=== PATIENT | female | born 1935 | race Caucasian/White ===

== ENCOUNTER 2018-07-08 16:36 | Emergency (ER) | payer MEDICARE, BC ==
--- NOTE | 2018-07-08 17:30 | EDM.PDOC ---
ED HPI GENERAL MEDICAL PROBLEM - General Chief Complaint: Head Injury Stated Complaint: POSSIBLE CONCUSSION Time Seen by Provider: 07/08/18 16:46 Source of Information: Reports: Patient History Limitations: Reports: No Limitations - History of Present Illness INITIAL COMMENTS - FREE TEXT/NARRATIVE: HISTORY AND PHYSICAL: History of present illness: Patient is an 83-year-old female here with complaint of head injury. Prior to the ED she was on a stepladder going down from the first step to floor when she fell backwards and hit her head on the wall. She states that she has gout in her foot and she stepped right where it hurts and believes this contributed to her fall. She did not lose consciousness but states she left a hole in the wall where she hit her head. She denies chest pain, dizziness, SOB prior to her fall. She states she is feeling a little dizzy now but denies headache, visual disturbances, vomiting. Review of systems: As per history of present illness and below otherwise all systems reviewed and negative. Past medical history: As per history of present illness and as reviewed below otherwise noncontributory. Surgical history: As per history of present illness and as reviewed below otherwise noncontributory. Social history: No reported history of drug or alcohol abuse. Family history: As per history of present illness and as reviewed below otherwise noncontributory. Physical exam: General: Patient sitting comfortably in no acute distress and nontoxic appearing HEENT: Atraumatic, normocephalic, pupils reactive, negative for conjunctival pallor or scleral icterus, mucous membranes moist, throat clear, neck supple, nontender, trachea midline. No meningeal signs. Lungs: Clear to auscultation, breath sounds equal bilaterally, chest nontender. Heart: S1S2, regular, negative for clicks, rubs, or overt murmur. Abdomen: Soft, nondistended, nontender. Negative for masses or hepatosplenomegaly. Negative for costovertebral tenderness. Pelvis: Stable nontender. Genitourinary: Deferred. Rectal: Deferred. Spine: No vertebral or paraspinal tenderness to palpation Extremities: Atraumatic, negative for cords or calf pain. Neurovascular unremarkable. Neuro: Awake, alert, oriented. Cranial nerves II through XII unremarkable. Cerebellum unremarkable. Motor and sensory unremarkable throughout. Exam nonfocal. Notes: Diagnostics: Head CT, EKG, CBC, CMP, UA Therapeutics: None Prescriptions: None Impression: Head injury, mechanical fall, medical screening exam Plan: 1. Follow up with your primary care provider 2. Return to ED as needed as discussed Definitive disposition and diagnosis as appropriate pending reevaluation and review of above. - Related Data Allergies Allergy/AdvReac Type Severity Reaction Status Date / Time No Known Allergies Allergy Verified 07/08/18 17:09 Home Meds: Home Meds Aspirin 325 mg PO DAILY 07/08/18 [History] Metoprolol Succinate [Toprol XL] 07/08/18 [History] Potassium Gluconate [Potassium] 07/08/18 [History] Triamterene 07/08/18 [History] ED ROS GENERAL - Review of Systems Review Of Systems: ROS reveals no pertinent complaints other than HPI. ED EXAM, HEAD INJURY - Physical Exam Exam: See Below (see dictation) Course - Vital Signs Last Recorded V/S: Last Vital Signs Temp 98.2 F 07/08/18 17:00 Pulse 65 07/08/18 17:00 Resp 18 07/08/18 17:00 BP 177/83 H 07/08/18 17:00 Pulse Ox 98 07/08/18 17:00 - Orders/Labs/Meds Orders: Active Orders 24 hr Category Date Time Status EKG Documentation Completion [RC] STAT Care 07/08/18 16:46 Active UA RFX DAR AND CULT IF INDIC [URIN] Stat Lab 07/08/18 16:46 Ordered Labs: Laboratory Tests 07/08/18 07/08/18 07/08/18 Range/Units 17:15 17:15 17:15 WBC 7.55 (4.0-11.0) K/uL RBC 4.61 (4.30-5.90) M/uL Hgb 12.7 (12.0-16.0) g/dL Hct 38.7 (36.0-46.0) % MCV 83.9 (80.0-98.0) fL MCH 27.5 (27.0-32.0) pg MCHC 32.8 (31.0-37.0) g/dL RDW Std Deviation 46.4 (28.0-62.0) fl RDW Coeff of Cheryl 15 (11.0-15.0) % Plt Count 326 (150-400) K/uL MPV 9.40 (7.40-12.00) fL Neut % (Auto) 48.8 (48.0-80.0) % Lymph % (Auto) 38.8 (16.0-40.0) % Smith % (Auto) 8.7 (0.0-15.0) % Eos % (Auto) 2.9 (0.0-7.0) % Baso % (Auto) 0.8 (0.0-1.5) % Neut # (Auto) 3.7 (1.4-5.7) K/uL Lymph # (Auto) 2.9 H (0.6-2.4) K/uL Smith # (Auto) 0.7 (0.0-0.8) K/uL Eos # (Auto) 0.2 (0.0-0.7) K/uL Baso # (Auto) 0.1 (0.0-0.1) K/uL Nucleated RBC % 0.0 /100WBC Nucleated RBCs # 0 K/uL INR 0.99 Sodium 141 (136-145) mmol/L Potassium 3.8 (3.5-5.1) mmol/L Chloride 105 (98-107) mmol/L Carbon Dioxide 28.8 (21.0-32.0) mmol/L BUN 16 (7.0-18.0) mg/dL Creatinine 0.9 (0.6-1.0) mg/dL Est Cr Clr Drug Dosing 41.62 mL/min Estimated GFR (MDRD) 59.9 ml/min Glucose 140 H (74-106) mg/dL Calcium 9.6 (8.5-10.1) mg/dL Total Bilirubin 0.4 (0.2-1.0) mg/dL AST 21 (15-37) IU/L ALT 15 (14-63) IU/L Alkaline Phosphatase 149 H (46-116) U/L Total Protein 7.8 (6.4-8.2) g/dL Albumin 3.3 L (3.4-5.0) g/dL Globulin 4.5 H (2.6-4.0) g/dL Albumin/Globulin Ratio 0.7 L (0.9-1.6) Departure - Departure Time of Disposition: 18:07 Disposition: Home, Self-Care 01 Condition: Good Clinical Impression: Head injury, Fall - Discharge Information Referrals: PCP,None [Primary Care Provider] - Forms: ED Department Discharge Additional Instructions: The following information is given to patients seen in the emergency department who are being discharged to home. This information is to outline your options for follow-up care. We provide all patients seen in our emergency department with a follow-up referral. The need for follow-up, as well as the timing and circumstances, are variable depending upon the specifics of your emergency department visit. If you don't have a primary care physician on staff, we will provide you with a referral. We always advise you to contact your personal physician following an emergency department visit to inform them of the circumstance of the visit and for follow-up with them and/or the need for any referrals to a consulting specialist. The emergency department will also refer you to a specialist when appropriate. This referral assures that you have the opportunity for follow-up care with a specialist. All of these measure are taken in an effort to provide you with optimal care, which includes your follow-up. Under all circumstances we always encourage you to contact your private physician who remains a resource for coordinating your care. When calling for follow-up care, please make the office aware that this follow-up is from your recent emergency room visit. If for any reason you are refused follow-up, please contact the [facility] Emergency Department at and asked to speak to the emergency department charge nurse. [address] [address] 1. Follow up with your primary care provider 2. Return to ED as needed as discussed - My Orders Last 24 Hours: My Active Orders 07/08/18 16:46 EKG Documentation Completion [RC] STAT UA RFX DAR AND CULT IF INDIC [URIN] Stat - Assessment/Plan Last 24 Hours: My Active Orders 07/08/18 16:46 EKG Documentation Completion [RC] STAT UA RFX DAR AND CULT IF INDIC [URIN] Stat
--- NOTE | 2018-07-08 17:53 | CT ---
INDICATION: Fall, struck back of head TECHNIQUE: CT head without contrast. COMPARISON: None FINDINGS: The ventricles are in proportion to the cortical sulci and consistent with patient`s stated age. The galaviz-white matter junction is distinct. Negative for acute intracranial hemorrhage, extra-axial fluid collection or midline shift. The visualized paranasal sinuses and mastoid air cells are clear. The bony calvarium is intact. The basal cisterns are preserved. IMPRESSION: Unremarkable noncontrast CT examination of the head without acute intracranial abnormality including hemorrhage. Dictated by Gabriela Wheat MD @ 07/08/2018 5:51:12 PM Please note that all CT scans at this facility use dose modulation, iterative reconstruction, and/or weight-based dosing when appropriate to reduce radiation dose to as low as reasonably achievable. Dictated by: Gabriela Wheat MD @ 07/08/2018 17:51:17 (Electronically Signed)
== END 2018-07-08 18:19 | disposition home or self-care (01) ==
LOC: MW.ED 16:36
DX: S09.10XA Unspecified injury of muscle and tendon of head, initial encounter (principal); W22.01XA Walked into wall, initial encounter
CPT/HCPCS: 36415; 70450; 70450-26; 80053; 85025; 85610; 93005; 99284; 99284-25

== ENCOUNTER 2020-07-04 20:09 | Observation (INO) | payer MEDICARE, BC ==
[2020-07-04] MEDS ORDERED: Sodium Chloride 0.9% 2.5 ML Syringe FLUSH PRN (20:36)
[2020-07-04] MEDS ORDERED: Sodium Chloride 0.9% 10 ML Syringe FLUSH PRN (20:36)
--- NOTE | 2020-07-04 20:40 | EDM.PDOC ---
<Joni Crespo - Last Filed: 07/04/20 23:54> ED HPI GENERAL MEDICAL PROBLEM - General Chief Complaint: General Stated Complaint: SURGERY COMPLCATIONS Time Seen by Provider: 07/04/20 20:11 - Related Data Allergies Allergy/AdvReac Type Severity Reaction Status Date / Time atorvastatin [From Lipitor] Allergy Muscle Verified 07/05/20 01:48 Aches Home Meds: Home Meds Acetaminophen [Pain Reliever] 650 mg PO Q6HR PRN 07/04/20 [History] Aspirin 81 mg PO BID 07/04/20 [History] Cyanocobalamin (Vitamin B-12) [Vitamin B-12] 1,000 mcg PO DAILY 07/04/20 [History] Cyclobenzaprine [Flexeril] 5 mg PO DAILY 07/04/20 [History] Famotidine [Pepcid] 20 mg PO DAILY 07/04/20 [History] Levothyroxine Sodium [Synthroid] 75 mcg PO DAILY 07/04/20 [History] Meloxicam 7.5 mg PO DAILY 07/04/20 [History] Metoprolol Succinate [Toprol XL] 50 mg PO DAILY 07/04/20 [History] Multivitamin with Minerals [Multiple Vitamin] 1 tab PO DAILY 07/04/20 [History] Potassium Chloride 20 meq PO DAILY 07/04/20 [History] Sennosides/Docusate Sodium [Senna-Docusate Sodium Tablet] 1 tab PO BID 07/04/20 [History] Triamterene/Hydrochlorothiazid [Triamterene-HCTZ 37.5-25 MG] 1 tab PO DAILY 07/04/20 [History] traMADol [Ultram] 50 mg PO Q6HR PRN 07/04/20 [History] Course - Re-Assessments/Exams Free Text/Narrative Re-Assessment/Exam: 07/04/20 23:[address] Araya, who agrees to admit patient. The hospitalist's documentation supersedes all other documentation on this patient with regard to any conflicts or discrepancies from this point forward. Any emergency conditions have been treated to the ability of the ED prior to admission. Departure - Departure Time of Disposition: 23:54 Disposition: Refer to Observation Condition: Good Clinical Impression: Near syncope - Discharge Information *PRESCRIPTION DRUG MONITORING PROGRAM REVIEWED*: Not Applicable *COPY OF PRESCRIPTION DRUG MONITORING REPORT IN PATIENT LUCAS: Not Applicable <Annamaria Franklin E - Last Filed: 07/05/20 09:53> ED HPI GENERAL MEDICAL PROBLEM - General Source of Information: Reports: Patient History Limitations: Reports: No Limitations - History of Present Illness INITIAL COMMENTS - FREE TEXT/NARRATIVE: HISTORY AND PHYSICAL: History of present illness: Patient is an 85-year-old female who presents to the emergency room with complaints of dizziness since having a total knee replacement on 07/01/2020 in [place]. Patient reports she has had intermittent dizziness, worsened with any type of movement or ambulation since having surgery. Today she has had nausea with one episode of vomiting. Patient reports prior to her knee surgery her metoprolol had been decreased from 100 mg to 50 mg due to her blood pressure being low and her having similar episodes of dizziness. She stated within a few days of her blood pressure medication being reduced her dizziness had subsided and she felt well. Her preop evaluation the increased her metoprolol to 75 mg for approximately 1 week. She states immediately after surgery they allowed her to go back down to her 50 mg. She states the dizziness is similar to when she was having these episodes with the increased dose of metoprolol and stated "it did take me a few days to have the dizziness resolved once they decreased my dosing". After surgery she states she did have dizziness while in the hospital, this has continued till now. When sitting still she does not have any dizziness nor does she have dizziness when she turns her head side to side while at rest. Symptoms are notable and aggravated with changing positions and ambulating. She states she needs to have assistance and something to hold onto as she feels like she could "fall over". She has not had any syncopal or near syncopal events. She denies any new injury, trauma or falls since her surgery. She states the surgery itself had gone well and she has no concerns of increased pain, redness, swelling or drainage from the surgical site. She is taking tramadol for pain and does not associate the dizziness with taking her pain medication. Patient denies any fever, chills, headache, or change in vision. Denies any chest pain, back pain, shortness of breath, hemoptysis or cough. Denies any abdominal pain, diarrhea, constipation or dysuria. Has not noted any blood in urine or stool. She denies any calf pain, increased lower extremity swelling, paresthesias, numbness or tingling. Patient has been eating and drinking appropriately. Review of systems: As per history of present illness and below otherwise all systems reviewed and negative. Past medical history: As per history of present illness and as reviewed below otherwise noncontributory. Surgical history: As per history of present illness and as reviewed below otherwise noncontributory. Social history: See social history for further information Family history: As per history of present illness and as reviewed below otherwise noncontributory. Physical exam: General: Well developed and well nourished 85-year-old female. Alert and orientated x 3. Clear and appropriate speech. Nontoxic in appearance and in no acute distress. Vital signs are stable and have been reviewed by me. Nursing notes were reviewed. HEENT: Atraumatic, normocephalic, pupils equal and reactive bilaterally, negative for conjunctival pallor or scleral icterus, mucous membranes dry/tacky, TMs normal bilaterally, throat clear, neck supple, nontender, trachea midline. No drooling or trismus noted. No meningeal signs. No hot potato voice noted. Lungs: Clear to auscultation bilaterally. No wheezes, rales, or rhonchi. Chest nontender. Normal work of breathing, no accessory muscles used. Heart: S1S2, regular rate and rhythm without overt murmur, gallops, or rubs. No JVD. No peripheral edema Abdomen: Soft, nondistended, nontender. Normoactive bowel sounds. Negative for masses or costovertebral tenderness. Skin: Midline incision to anterior left knee. Mild erythema to the medial aspect of the incision site without fluctuance or induration. There is no noted drainage. Mild swelling of the left knee, general. Remaining skin is intact, warm, dry. No lesions or rashes noted. Hematologic: No petechiae or purpra. Mucosa appropriate color and normal nail bed color and refill. Extremities: Recent left total knee surgery, skin for details. She moves all extremities per self without difficulty or deficits, negative for cords or calf pain. Neurovascular unremarkable. Neuro: Awake, alert, oriented. Cranial nerves II through XII unremarkable. Cerebellum unremarkable. Motor and sensory unremarkable throughout. Exam nonfocal. Psychiatric: Mood and affect are appropriate. Normal thought process. Answering questions appropriately. Notes: *This patient was seen and evaluated during the 2019 SARS-CoV-2 novel coronavirus pandemic period. Community viral transmission is ongoing at time of this encounter and the emergency department is operating under pandemic response procedures. Patient does have some orthostatic hypotension with position changing and she is symptomatic. Does appear that she is tachycardic I will add a D-dimer to rule out DVT or PE with her recent surgery. EKG shows sinus tachycardia rate of 101, no concern for STEMI. Dr Crespo has been involved in this case and will follow patient as her results have yet to return. He will assume care of patient and disposition patient appropriately. Diagnostics: CBC, CMP, Lactate, EKG, CXR, troponin, INR, D-dimer, venous ultrasound of left lower extremity, PE angio chest, head CT Therapeutics: IV fluid Definitive disposition and diagnosis as appropriate pending reevaluation and review of above. Duration: Day(s): Past Medical History Cardiovascular History: Reports: Hypertension CASE LINER History: Reports: Other Musculoskeletal History: L knee sx Endocrine/Metabolic History: Reports: Hypothyroidism - Infectious Disease History Infectious Disease History: Reports: Chicken Pox, Measles - Past Surgical History Female Surgical History: Reports: Hysterectomy Social & Family History - Family History Family Medical History: No Pertinent Family History - Caffeine Use Caffeine Use: Reports: None - Recreational Drug Use Recreational Drug Use: No ED ROS GENERAL - Review of Systems Review Of Systems: Comprehensive ROS is negative, except as noted in HPI. ED EXAM, GENERAL - Physical Exam Exam: See Below (See dictation) Course - Vital Signs Last Recorded V/S: Last Vital Signs Temp 98.0 F 07/05/20 08:26 Pulse 104 H 07/05/20 08:26 Resp 16 07/05/20 08:26 BP 122/63 07/05/20 08:26 Pulse Ox 93 L 07/05/20 08:26 Orthostatic Blood Pressure [ 107/60 Standing] Orthostatic Blood Pressure [ 112/64 Sitting] Orthostatic Blood Pressure [ 120/66 Supine] - Orders/Labs/Meds Orders: Active Orders 24 hr Category Date Time Status Patient Status [ADT] Routine ADT 07/04/20 23:53 Active Cardiac Monitoring [RC] . DIRECTED Care 07/04/20 20:36 Active EKG Documentation Completion [RC] STAT Care 07/04/20 20:35 Active Orthostatic Vital Signs [RC] ASDIRECTED Care 07/04/20 20:35 Active Sodium Chloride 0.9% [Saline Flush] Med 07/04/20 20:36 Active 10 ml FLUSH ASDIRECTED PRN Sodium Chloride 0.9% [Saline Flush] Med 07/04/20 20:36 Active 2.5 ml FLUSH ASDIRECTED PRN Saline Lock Insert [OM.PC] Stat Oth 07/04/20 20:36 Ordered Medication Orders Sodium Chloride (Saline Flush) 10 ml FLUSH ASDIRECTED PRN PRN Reason: Keep Vein Open Last Admin: 07/04/20 21:28 Dose: 10 ml Documented by: [id number] Sodium Chloride (Saline Flush) 2.5 ml FLUSH ASDIRECTED PRN PRN Reason: Keep Vein Open Last Admin: 07/04/20 21:28 Dose: 2.5 ml Documented by: [id number] Labs: Laboratory Tests 07/04/20 07/04/20 07/04/20 Range/Units 20:40 20:40 20:40 WBC 12.31 H (4.0-11.0) K/uL RBC 4.32 (4.30-5.90) M/uL Hgb 12.7 (12.0-16.0) g/dL Hct 37.7 (36.0-46.0) % MCV 87.3 (80.0-98.0) fL MCH 29.4 (27.0-32.0) pg MCHC 33.7 (31.0-37.0) g/dL RDW Std Deviation 45.5 (28.0-62.0) fl RDW Coeff of Cheryl 14 (11.0-15.0) % Plt Count 333 (150-400) K/uL MPV 10.00 (7.40-12.00) fL Neut % (Auto) 60.5 (48.0-80.0) % Lymph % (Auto) 28.4 (16.0-40.0) % [place] % (Auto) 9.3 (0.0-15.0) % Eos % (Auto) 1.5 (0.0-7.0) % Baso % (Auto) 0.3 (0.0-1.5) % Neut # (Auto) 7.5 H (1.4-5.7) K/uL Lymph # (Auto) 3.5 H (0.6-2.4) K/uL [place] # (Auto) 1.2 H (0.0-0.8) K/uL Eos # (Auto) 0.2 (0.0-0.7) K/uL Baso # (Auto) 0.0 (0.0-0.1) K/uL Nucleated RBC % 0.0 /100WBC Nucleated RBCs # 0 K/uL INR D-Dimer, Quantitative 1.85 H (0.0-0.50) mg/L FEU Lactate (0.20-2.00) mmol/L Sodium 137 (136-145) mmol/L Potassium 3.9 (3.5-5.1) mmol/L Chloride 97 L (98-107) mmol/L Carbon Dioxide 29.3 (21.0-32.0) mmol/L BUN 29 H (7.0-18.0) mg/dL Creatinine 1.4 H (0.6-1.0) mg/dL Est Cr Clr Drug Dosing 22.57 mL/min Estimated GFR (MDRD) 35.8 ml/min Glucose 133 H (74-106) mg/dL Calcium 9.4 (8.5-10.1) mg/dL Total Bilirubin 0.9 (0.2-1.0) mg/dL AST 18 (15-37) IU/L ALT 12 L (14-63) IU/L Alkaline Phosphatase 108 (46-116) U/L Troponin I < 0.050 (0.000-0.056) ng/mL Total Protein 8.1 (6.4-8.2) g/dL Albumin 3.4 (3.4-5.0) g/dL Globulin 4.7 H (2.6-4.0) g/dL Albumin/Globulin Ratio 0.7 L (0.9-1.6) Free T4 (0.76-1.46) ng/dL TSH 3rd Generation (0.36-3.74) uIU/mL 07/04/20 07/04/20 07/04/20 Range/Units 20:40 20:40 20:40 WBC (4.0-11.0) K/uL RBC (4.30-5.90) M/uL Hgb (12.0-16.0) g/dL Hct (36.0-46.0) % MCV (80.0-98.0) fL MCH (27.0-32.0) pg MCHC (31.0-37.0) g/dL RDW Std Deviation (28.0-62.0) fl RDW Coeff of Cheryl (11.0-15.0) % Plt Count (150-400) K/uL MPV (7.40-12.00) fL Neut % (Auto) (48.0-80.0) % Lymph % (Auto) (16.0-40.0) % [place] % (Auto) (0.0-15.0) % Eos % (Auto) (0.0-7.0) % Baso % (Auto) (0.0-1.5) % Neut # (Auto) (1.4-5.7) K/uL Lymph # (Auto) (0.6-2.4) K/uL [place] # (Auto) (0.0-0.8) K/uL Eos # (Auto) (0.0-0.7) K/uL Baso # (Auto) (0.0-0.1) K/uL Nucleated RBC % /100WBC Nucleated RBCs # K/uL INR 0.95 D-Dimer, Quantitative (0.0-0.50) mg/L FEU Lactate 1.9 (0.20-2.00) mmol/L Sodium (136-145) mmol/L Potassium (3.5-5.1) mmol/L Chloride (98-107) mmol/L Carbon Dioxide (21.0-32.0) mmol/L BUN (7.0-18.0) mg/dL Creatinine (0.6-1.0) mg/dL Est Cr Clr Drug Dosing mL/min Estimated GFR (MDRD) ml/min Glucose (74-106) mg/dL Calcium (8.5-10.1) mg/dL Total Bilirubin (0.2-1.0) mg/dL AST (15-37) IU/L ALT (14-63) IU/L Alkaline Phosphatase (46-116) U/L Troponin I (0.000-0.056) ng/mL Total Protein (6.4-8.2) g/dL Albumin (3.4-5.0) g/dL Globulin (2.6-4.0) g/dL Albumin/Globulin Ratio (0.9-1.6) Free T4 (0.76-1.46) ng/dL TSH 3rd Generation 3.89 H (0.36-3.74) uIU/mL 07/04/20 Range/Units 20:40 WBC (4.0-11.0) K/uL RBC (4.30-5.90) M/uL Hgb (12.0-16.0) g/dL Hct (36.0-46.0) % MCV (80.0-98.0) fL MCH (27.0-32.0) pg MCHC (31.0-37.0) g/dL RDW Std Deviation (28.0-62.0) fl RDW Coeff of Cheryl (11.0-15.0) % Plt Count (150-400) K/uL MPV (7.40-12.00) fL Neut % (Auto) (48.0-80.0) % Lymph % (Auto) (16.0-40.0) % [place] % (Auto) (0.0-15.0) % Eos % (Auto) (0.0-7.0) % Baso % (Auto) (0.0-1.5) % Neut # (Auto) (1.4-5.7) K/uL Lymph # (Auto) (0.6-2.4) K/uL [place] # (Auto) (0.0-0.8) K/uL Eos # (Auto) (0.0-0.7) K/uL Baso # (Auto) (0.0-0.1) K/uL Nucleated RBC % /100WBC Nucleated RBCs # K/uL INR D-Dimer, Quantitative (0.0-0.50) mg/L FEU Lactate (0.20-2.00) mmol/L Sodium (136-145) mmol/L Potassium (3.5-5.1) mmol/L Chloride (98-107) mmol/L Carbon Dioxide (21.0-32.0) mmol/L BUN (7.0-18.0) mg/dL Creatinine (0.6-1.0) mg/dL Est Cr Clr Drug Dosing mL/min Estimated GFR (MDRD) ml/min Glucose (74-106) mg/dL Calcium (8.5-10.1) mg/dL Total Bilirubin (0.2-1.0) mg/dL AST (15-37) IU/L ALT (14-63) IU/L Alkaline Phosphatase (46-116) U/L Troponin I (0.000-0.056) ng/mL Total Protein (6.4-8.2) g/dL Albumin (3.4-5.0) g/dL Globulin (2.6-4.0) g/dL Albumin/Globulin Ratio (0.9-1.6) Free T4 1.58 H (0.76-1.46) ng/dL TSH 3rd Generation (0.36-3.74) uIU/mL Meds: Medications Generic Name Dose Route Start Last Admin Trade Name Freq PRN Reason Stop Dose Admin Sodium Chloride 10 ml 07/04/20 20:36 07/04/20 21:28 Saline Flush FLUSH 10 ml ASDIRECTED PRN Administration Keep Vein Open Sodium Chloride 2.5 ml 07/04/20 20:36 07/04/20 21:28 Saline Flush FLUSH 2.5 ml ASDIRECTED PRN Administration Keep Vein Open Discontinued Medications Generic Name Dose Route Start Last Admin Trade Name Freq PRN Reason Stop Dose Admin Sodium Chloride 1,000 mls @ 999 mls/hr 07/04/20 21:03 07/04/20 21:26 Normal Saline IV 07/04/20 22:03 999 mls/hr STAT ONE Administration Lorazepam 0.5 mg 07/04/20 21:42 07/04/20 21:55 Ativan IVPUSH 07/04/20 21:43 0.5 mg ONETIME ONE Administration Sepsis Event Note (ED) - Evaluation Sepsis Screening Result: No Definite Risk - Focused Exam Vital Signs: Vital Signs Pulse Resp BP Pulse Ox 07/04/20 23:26 104 H 18 130/73 95 07/04/20 22:05 107 H 18 137/74 95 - My Orders Last 24 Hours: My Active Orders 07/04/20 20:35 EKG Documentation Completion [RC] STAT Orthostatic Vital Signs [RC] ASDIRECTED 07/04/20 20:36 Cardiac Monitoring [RC] . DIRECTED Sodium Chloride 0.9% [Saline Flush] 10 ml FLUSH ASDIRECTED PRN Sodium Chloride 0.9% [Saline Flush] 2.5 ml FLUSH ASDIRECTED PRN Saline Lock Insert [OM.PC] Stat - Assessment/Plan Last 24 Hours: My Active Orders 07/04/20 20:35 EKG Documentation Completion [RC] STAT Orthostatic Vital Signs [RC] ASDIRECTED 07/04/20 20:36 Cardiac Monitoring [RC] . DIRECTED Sodium Chloride 0.9% [Saline Flush] 10 ml FLUSH ASDIRECTED PRN Sodium Chloride 0.9% [Saline Flush] 2.5 ml FLUSH ASDIRECTED PRN Saline Lock Insert [OM.PC] Stat
--- NOTE | 2020-07-04 20:40 | EDM.PDOC ---
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 Musculoskeletal History: L knee sx Endocrine/Metabolic History: Reports: Hypothyroidism - Infectious Disease History Infectious Disease History: Reports: Chicken Pox, Measles - Past Surgical History Female Surgical History: Reports: Hysterectomy Social & Family History - Family History Family Medical History: No Pertinent Family History - Caffeine Use Caffeine Use: Reports: None - Recreational Drug Use Recreational Drug Use: No Course - Vital Signs Last Recorded V/S: Last Vital Signs Temp 97.8 F 07/04/20 20:27 Pulse 117 H 07/04/20 20:27 Resp 18 07/04/20 20:27 BP 148/70 H 07/04/20 20:27 Pulse Ox 97 07/04/20 20:27 Orthostatic Blood Pressure [ 107/60 Standing] Orthostatic Blood Pressure [ 112/64 Sitting] Orthostatic Blood Pressure [ 120/66 Supine] - Orders/Labs/Meds Orders: Active Orders 24 hr Category Date Time Status Cardiac Monitoring [RC] . DIRECTED Care 07/04/20 20:36 Active EKG Documentation Completion [RC] STAT Care 07/04/20 20:35 Active Orthostatic Vital Signs [RC] ASDIRECTED Care 07/04/20 20:35 Active Chest 1V Frontal [CR] Stat Exams 07/04/20 20:35 Ordered Venous Doppler Lwr Ext Lt [US] Stat Exams 07/04/20 20:35 Ordered CBC WITH AUTO DIFF [HEME] Stat Lab 07/04/20 20:34 Ordered COMPREHENSIVE METABOLIC PN,CMP [CHEM] Stat Lab 07/04/20 20:35 Ordered D-DIMER QUANTITATIVE [COAG] Stat Lab 07/04/20 20:35 Ordered INR,PT,PROTHROMBIN TIME [COAG] Stat Lab 07/04/20 20:37 Ordered LACTATE WITH REFLEX [BG] Stat Lab 07/04/20 20:36 Ordered TROPONIN I [CHEM] Stat Lab 07/04/20 20:35 Ordered Sodium Chloride 0.9% [Saline Flush] Med 07/04/20 20:36 Active 10 ml FLUSH ASDIRECTED PRN Sodium Chloride 0.9% [Saline Flush] Med 07/04/20 20:36 Active 2.5 ml FLUSH ASDIRECTED PRN Saline Lock Insert [OM.PC] Stat Oth 07/04/20 20:36 Ordered Medication Orders Sodium Chloride (Saline Flush) 10 ml FLUSH ASDIRECTED PRN PRN Reason: Keep Vein Open Sodium Chloride (Saline Flush) 2.5 ml FLUSH ASDIRECTED PRN PRN Reason: Keep Vein Open Meds: Medications Generic Name Dose Route Start Last Admin Trade Name Freq PRN Reason Stop Dose Admin Sodium Chloride 10 ml 07/04/20 20:36 Saline Flush FLUSH ASDIRECTED PRN Keep Vein Open Sodium Chloride 2.5 ml 07/04/20 20:36 Saline Flush FLUSH ASDIRECTED PRN Keep Vein Open Departure - Discharge Information Referrals: PCP,Not In Area [Primary Care Provider] - Sepsis Event Note (ED) - Evaluation Sepsis Screening Result: No Definite Risk - Focused Exam Vital Signs: Vital Signs Temp Pulse Resp BP Pulse Ox 07/04/20 20:27 97.8 F 117 H 18 148/70 H 97
--- NOTE | 2020-07-04 20:58 | PCM.EKG ---
#1 Interpretation EKG Interpretation Comments: Heart rate = 101 bpm, sinus tachycardia, normal QRS interval, no STEMI. EKG and rhythm strip interpreted by me at 2037
[2020-07-04] MEDS ORDERED: Sodium Chloride 0.9% 1,000 ML IV ONE (21:03)
[2020-07-04 21:10] LABS: BLOOD UREA NITROGEN,BUN 29 mg/dL (7.0-18.0); CARBON DIOXIDE,CO2 29.3 mmol/L (21.0-32.0); CHLORIDE,CL 97 mmol/L (98-107); GLUCOSE RANDOM 133 mg/dL (74-106); POTASSIUM,K 3.9 mmol/L (3.5-5.1); SODIUM,NA 137 mmol/L (136-145)
--- NOTE | 2020-07-04 21:28 | CR ---
HISTORY: Dizziness. TECHNIQUE: Portable frontal view of the chest. COMPARISON: None. FINDINGS: No airspace consolidation. No pleural effusion or pneumothorax. Pulmonary vasculature and cardiomediastinal silhouette are within normal limits. Surgical anchor in the right humeral head. Widening of the right AC joint may be postoperative or posttraumatic. IMPRESSION: No cardiopulmonary abnormality. Dictated by Milo Vitale MD @ Jul 04 2020 9:25PM Signed by Dr. Milo Vitale @ Jul 04 2020 9:27PM
[2020-07-04] MEDS ORDERED: LORazepam 2 MG/ML SDV IVPUSH ONE (21:42)
--- NOTE | 2020-07-04 21:58 | US ---
INDICATION: Dizziness TECHNIQUE: Ultrasound venous duplex lower left extremity. Compression venous exam was performed using galaviz-scale, color Doppler, and spectral Doppler analysis. COMPARISON: None. FINDINGS: Sonographic imaging demonstrates the left common femoral, deep femoral, superficial femoral, popliteal, posterior tibial and greater saphenous veins to be fully compressible with normal color Doppler blood flow. IMPRESSION: Normal left lower extremity venous ultrasound, no sign of deep venous thrombosis. Dictated by Alfred Bowman MD @ Jul 04 2020 9:55PM Signed by Dr. Alfred Bowman @ Jul 04 2020 9:56PM
--- NOTE | 2020-07-04 23:13 | CT ---
INDICATION: Dizziness. TECHNIQUE: Noncontrast axial images. Sagittal and coronal reconstructions. COMPARISON: None. FINDINGS: There is no abnormal intra mass effect or midline shift. No acute intracanal hemorrhage. No appreciable loss of the normal galaviz-white matter differentiation. Mild periventricular and subcortical white matter changes are likely related to chronic small vessel disease. CSF spaces are age-appropriate. No acute osseous abnormality. Visualized portions of paranasal sinus and mastoids are clear. IMPRESSION: No CT evidence of an acute intracranial abnormality. Dictated by Niko Santillan MD @ 07/04/2020 11:11:49 PM Please note that all CT scans at this facility use dose modulation, iterative reconstruction, and/or weight-based dosing when appropriate to reduce radiation dose to as low as reasonably achievable. Dictated by: Niko Santillan MD @ 07/04/2020 23:11:55 (Electronically Signed)
--- NOTE | 2020-07-04 23:24 | CT ---
INDICATION: Dizziness. Elevated D-dimer. TECHNIQUE: CT pulmonary angiogram protocol. 80 mL [id number] IV. COMPARISON: None. FINDINGS: Pulmonary arteries: Adequate contrast opacification. No filling defects to suggest an acute pulmonary embolus. Remainder of the chest: Heart size is within normal limits. No pericardial effusion. Atherosclerotic changes are noted, including coronary artery calcifications. No aneurysmal dilatation or dissection of the thoracic aorta. No significantly enlarged thoracic lymph nodes are identified. Minor bibasilar atelectasis. Lungs otherwise appear clear. No pleural fluid or pneumothorax. Upper abdomen: No acute abnormality is identified. Bones: No acute abnormality is identified. IMPRESSION: No CT signs of acute thoracic disease. Specifically, no evidence of an acute pulmonary embolus. Dictated by Niko Santillan MD @ 07/04/2020 11:21:54 PM Please note that all CT scans at this facility use dose modulation, iterative reconstruction, and/or weight-based dosing when appropriate to reduce radiation dose to as low as reasonably achievable. Dictated by: Niko Santillan MD @ 07/04/2020 23:22:07 (Electronically Signed)
--- NOTE | 2020-07-05 09:35 | PCM.HP.2 ---
H&P History of Present Illness - General Date of Service: 07/05/20 Admit Problem/Dx: Admission Diagnosis/Problem Admission Diagnosis/Problem Near syncope - History of Present Illness Initial Comments - Free Text/Narative: 85 yo female with pmh of HTN, hypothyroidism and left knee replacement four days ago. Patient is admitted due to dizziness, nausea and vomiting. Patient had taking tramadol that night which she was given after her knee surgery. She also has had her metoprolol changed recently. It was decreased to 50mg due to dizziness but then right before surgery it was increased to 75mg then back to 50mg when she became dizzy again. IN the ED CT chest angio, CT head and leg dopplars were negative. She does not remember much of what happened right before coming to the the ED. - Related Data Allergies/Adverse Reactions: Allergies Allergy/AdvReac Type Severity Reaction Status Date / Time atorvastatin [From Lipitor] Allergy Muscle Verified 07/05/20 01:48 Aches Home Medications: Home Meds Acetaminophen [Pain Reliever] 650 mg PO Q6HR PRN 07/04/20 [History] Aspirin 81 mg PO BID 07/04/20 [History] Cyanocobalamin (Vitamin B-12) [Vitamin B-12] 1,000 mcg PO DAILY 07/04/20 [History] Cyclobenzaprine [Flexeril] 5 mg PO DAILY 07/04/20 [History] Famotidine [Pepcid] 20 mg PO DAILY 07/04/20 [History] Levothyroxine Sodium [Synthroid] 75 mcg PO DAILY 07/04/20 [History] Meloxicam 7.5 mg PO DAILY 07/04/20 [History] Metoprolol Succinate [Toprol XL] 50 mg PO DAILY 07/04/20 [History] Multivitamin with Minerals [Multiple Vitamin] 1 tab PO DAILY 07/04/20 [History] Potassium Chloride 20 meq PO DAILY 07/04/20 [History] Sennosides/Docusate Sodium [Senna-Docusate Sodium Tablet] 1 tab PO BID 07/04/20 [History] Triamterene/Hydrochlorothiazid [Triamterene-HCTZ 37.5-25 MG] 1 tab PO DAILY 07/04/20 [History] Past Medical History Cardiovascular History: Reports: 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 Musculoskeletal History: L knee sx Endocrine/Metabolic History: Reports: Hypothyroidism - Infectious Disease History Infectious Disease History: Reports: Chicken Pox, Measles - Past Surgical History Female Surgical History: Reports: Hysterectomy Social & Family History - Family History Family Medical History: No Pertinent Family History - Tobacco Use Tobacco Use Status *Q: Never Tobacco User Second Hand Smoke Exposure: No - Caffeine Use Caffeine Use: Reports: None - Recreational Drug Use Recreational Drug Use: No H&P Review of Systems - Review of Systems: Review Of Systems: Comprehensive ROS is negative, except as noted in HPI. Exam - Exam Exam: See Below - Vital Signs Vital Signs: Last Vital Signs Temp 36.7 C 07/05/20 08:26 Pulse 104 H 07/05/20 08:26 Resp 16 07/05/20 08:26 BP 122/63 07/05/20 08:26 Pulse Ox 93 L 07/05/20 08:26 Orthostatic Blood Pressure [ 107/60 Standing] Orthostatic Blood Pressure [ 112/64 Sitting] Orthostatic Blood Pressure [ 120/66 Supine] Weight: 65.499 kg - Exam General: Alert, Oriented HEENT: Mucosa Moist & [place] Lungs: Clear to Auscultation, Normal Respiratory Effort Cardiovascular: Regular Rate, Regular Rhythm GI/Abdominal Exam: Normal Bowel Sounds, Soft, Non-Tender Extremities: Non-Tender, No Pedal Edema Skin: Warm, Dry, Intact Neurological: Cranial Nerves Intact - Patient Data Lab Results Last 24 hrs: Laboratory Results - last 24 hr 07/04/20 07/04/20 07/04/20 Range/Units 20:40 20:40 20:40 WBC 12.31 H (4.0-11.0) K/uL RBC 4.32 (4.30-5.90) M/uL Hgb 12.7 (12.0-16.0) g/dL Hct 37.7 (36.0-46.0) % MCV 87.3 (80.0-98.0) fL MCH 29.4 (27.0-32.0) pg MCHC 33.7 (31.0-37.0) g/dL RDW Std Deviation 45.5 (28.0-62.0) fl RDW Coeff of Cheryl 14 (11.0-15.0) % Plt Count 333 (150-400) K/uL MPV 10.00 (7.40-12.00) fL Neut % (Auto) 60.5 (48.0-80.0) % Lymph % (Auto) 28.4 (16.0-40.0) % [place] % (Auto) 9.3 (0.0-15.0) % Eos % (Auto) 1.5 (0.0-7.0) % Baso % (Auto) 0.3 (0.0-1.5) % Neut # (Auto) 7.5 H (1.4-5.7) K/uL Lymph # (Auto) 3.5 H (0.6-2.4) K/uL [place] # (Auto) 1.2 H (0.0-0.8) K/uL Eos # (Auto) 0.2 (0.0-0.7) K/uL Baso # (Auto) 0.0 (0.0-0.1) K/uL Nucleated RBC % 0.0 /100WBC Nucleated RBCs # 0 K/uL INR D-Dimer, Quantitative 1.85 H (0.0-0.50) mg/L FEU Lactate (0.20-2.00) mmol/L Sodium 137 (136-145) mmol/L Potassium 3.9 (3.5-5.1) mmol/L Chloride 97 L (98-107) mmol/L Carbon Dioxide 29.3 (21.0-32.0) mmol/L BUN 29 H (7.0-18.0) mg/dL Creatinine 1.4 H (0.6-1.0) mg/dL Est Cr Clr Drug Dosing 22.57 mL/min Estimated GFR (MDRD) 35.8 ml/min Glucose 133 H (74-106) mg/dL Calcium 9.4 (8.5-10.1) mg/dL Total Bilirubin 0.9 (0.2-1.0) mg/dL AST 18 (15-37) IU/L ALT 12 L (14-63) IU/L Alkaline Phosphatase 108 (46-116) U/L Troponin I < 0.050 (0.000-0.056) ng/mL B-Natriuretic Peptide (<100) PG/ML Total Protein 8.1 (6.4-8.2) g/dL Albumin 3.4 (3.4-5.0) g/dL Globulin 4.7 H (2.6-4.0) g/dL Albumin/Globulin Ratio 0.7 L (0.9-1.6) Free T4 (0.76-1.46) ng/dL TSH 3rd Generation (0.36-3.74) uIU/mL Urine Color Urine Appearance Urine pH (5.0-8.0) Ur Specific [place] (1.001-1.035) Urine Protein (NEGATIVE) mg/dL Urine Glucose (UA) (NEGATIVE) mg/dL Urine Ketones (NEGATIVE) mg/dL Urine Occult Blood (NEGATIVE) Urine Nitrite (NEGATIVE) Urine Bilirubin (NEGATIVE) Urine Urobilinogen (<2.0) EU/dL Ur Leukocyte Esterase (NEGATIVE) SARS-CoV-2 RNA (GERI) (NEGATIVE) 07/04/20 07/04/20 07/04/20 Range/Units 20:40 20:40 20:40 WBC (4.0-11.0) K/uL RBC (4.30-5.90) M/uL Hgb (12.0-16.0) g/dL Hct (36.0-46.0) % MCV (80.0-98.0) fL MCH (27.0-32.0) pg MCHC (31.0-37.0) g/dL RDW Std Deviation (28.0-62.0) fl RDW Coeff of Cheryl (11.0-15.0) % Plt Count (150-400) K/uL MPV (7.40-12.00) fL Neut % (Auto) (48.0-80.0) % Lymph % (Auto) (16.0-40.0) % [place] % (Auto) (0.0-15.0) % Eos % (Auto) (0.0-7.0) % Baso % (Auto) (0.0-1.5) % Neut # (Auto) (1.4-5.7) K/uL Lymph # (Auto) (0.6-2.4) K/uL [place] # (Auto) (0.0-0.8) K/uL Eos # (Auto) (0.0-0.7) K/uL Baso # (Auto) (0.0-0.1) K/uL Nucleated RBC % /100WBC Nucleated RBCs # K/uL INR 0.95 D-Dimer, Quantitative (0.0-0.50) mg/L FEU Lactate 1.9 (0.20-2.00) mmol/L Sodium (136-145) mmol/L Potassium (3.5-5.1) mmol/L Chloride (98-107) mmol/L Carbon Dioxide (21.0-32.0) mmol/L BUN (7.0-18.0) mg/dL Creatinine (0.6-1.0) mg/dL Est Cr Clr Drug Dosing mL/min Estimated GFR (MDRD) ml/min Glucose (74-106) mg/dL Calcium (8.5-10.1) mg/dL Total Bilirubin (0.2-1.0) mg/dL AST (15-37) IU/L ALT (14-63) IU/L Alkaline Phosphatase (46-116) U/L Troponin I (0.000-0.056) ng/mL B-Natriuretic Peptide (<100) PG/ML Total Protein (6.4-8.2) g/dL Albumin (3.4-5.0) g/dL Globulin (2.6-4.0) g/dL Albumin/Globulin Ratio (0.9-1.6) Free T4 (0.76-1.46) ng/dL TSH 3rd Generation 3.89 H (0.36-3.74) uIU/mL Urine Color Urine Appearance Urine pH (5.0-8.0) Ur Specific [place] (1.001-1.035) Urine Protein (NEGATIVE) mg/dL Urine Glucose (UA) (NEGATIVE) mg/dL Urine Ketones (NEGATIVE) mg/dL Urine Occult Blood (NEGATIVE) Urine Nitrite (NEGATIVE) Urine Bilirubin (NEGATIVE) Urine Urobilinogen (<2.0) EU/dL Ur Leukocyte Esterase (NEGATIVE) SARS-CoV-2 RNA (GERI) (NEGATIVE) 07/04/20 07/04/20 07/05/20 Range/Units 20:40 23:55 00:20 WBC (4.0-11.0) K/uL RBC (4.30-5.90) M/uL Hgb (12.0-16.0) g/dL Hct (36.0-46.0) % MCV (80.0-98.0) fL MCH (27.0-32.0) pg MCHC (31.0-37.0) g/dL RDW Std Deviation (28.0-62.0) fl RDW Coeff of Cheryl (11.0-15.0) % Plt Count (150-400) K/uL MPV (7.40-12.00) fL Neut % (Auto) (48.0-80.0) % Lymph % (Auto) (16.0-40.0) % [place] % (Auto) (0.0-15.0) % Eos % (Auto) (0.0-7.0) % Baso % (Auto) (0.0-1.5) % Neut # (Auto) (1.4-5.7) K/uL Lymph # (Auto) (0.6-2.4) K/uL [place] # (Auto) (0.0-0.8) K/uL Eos # (Auto) (0.0-0.7) K/uL Baso # (Auto) (0.0-0.1) K/uL Nucleated RBC % /100WBC Nucleated RBCs # K/uL INR D-Dimer, Quantitative (0.0-0.50) mg/L FEU Lactate (0.20-2.00) mmol/L Sodium (136-145) mmol/L Potassium (3.5-5.1) mmol/L Chloride (98-107) mmol/L Carbon Dioxide (21.0-32.0) mmol/L BUN (7.0-18.0) mg/dL Creatinine (0.6-1.0) mg/dL Est Cr Clr Drug Dosing mL/min Estimated GFR (MDRD) ml/min Glucose (74-106) mg/dL Calcium (8.5-10.1) mg/dL Total Bilirubin (0.2-1.0) mg/dL AST (15-37) IU/L ALT (14-63) IU/L Alkaline Phosphatase (46-116) U/L Troponin I (0.000-0.056) ng/mL B-Natriuretic Peptide (<100) PG/ML Total Protein (6.4-8.2) g/dL Albumin (3.4-5.0) g/dL Globulin (2.6-4.0) g/dL Albumin/Globulin Ratio (0.9-1.6) Free T4 1.58 H (0.76-1.46) ng/dL TSH 3rd Generation (0.36-3.74) uIU/mL Urine Color YELLOW Urine Appearance CLEAR Urine pH 6.5 (5.0-8.0) Ur Specific [place] 1.010 (1.001-1.035) Urine Protein NEGATIVE (NEGATIVE) mg/dL Urine Glucose (UA) NEGATIVE (NEGATIVE) mg/dL Urine Ketones TRACE H (NEGATIVE) mg/dL Urine Occult Blood NEGATIVE (NEGATIVE) Urine Nitrite NEGATIVE (NEGATIVE) Urine Bilirubin NEGATIVE (NEGATIVE) Urine Urobilinogen 0.2 (<2.0) EU/dL Ur Leukocyte Esterase NEGATIVE (NEGATIVE) SARS-CoV-2 RNA (GERI) NEGATIVE (NEGATIVE) 07/05/20 07/05/20 Range/Units 06:00 06:00 WBC 8.29 (4.0-11.0) K/uL RBC 3.79 L (4.30-5.90) M/uL Hgb 10.7 L (12.0-16.0) g/dL Hct 33.5 L (36.0-46.0) % MCV 88.4 (80.0-98.0) fL MCH 28.2 (27.0-32.0) pg MCHC 31.9 (31.0-37.0) g/dL RDW Std Deviation 46.7 (28.0-62.0) fl RDW Coeff of Cheryl 14 (11.0-15.0) % Plt Count 282 (150-400) K/uL MPV 10.00 (7.40-12.00) fL Neut % (Auto) 60.7 (48.0-80.0) % Lymph % (Auto) 26.8 (16.0-40.0) % [place] % (Auto) 11.1 (0.0-15.0) % Eos % (Auto) 1.0 (0.0-7.0) % Baso % (Auto) 0.4 (0.0-1.5) % Neut # (Auto) 5.0 (1.4-5.7) K/uL Lymph # (Auto) 2.2 (0.6-2.4) K/uL [place] # (Auto) 0.9 H (0.0-0.8) K/uL Eos # (Auto) 0.1 (0.0-0.7) K/uL Baso # (Auto) 0.0 (0.0-0.1) K/uL Nucleated RBC % 0.0 /100WBC Nucleated RBCs # 0 K/uL INR D-Dimer, Quantitative (0.0-0.50) mg/L FEU Lactate (0.20-2.00) mmol/L Sodium (136-145) mmol/L Potassium (3.5-5.1) mmol/L Chloride (98-107) mmol/L Carbon Dioxide (21.0-32.0) mmol/L BUN (7.0-18.0) mg/dL Creatinine (0.6-1.0) mg/dL Est Cr Clr Drug Dosing mL/min Estimated GFR (MDRD) ml/min Glucose (74-106) mg/dL Calcium (8.5-10.1) mg/dL Total Bilirubin (0.2-1.0) mg/dL AST (15-37) IU/L ALT (14-63) IU/L Alkaline Phosphatase (46-116) U/L Troponin I (0.000-0.056) ng/mL B-Natriuretic Peptide 57 (<100) PG/ML Total Protein (6.4-8.2) g/dL Albumin (3.4-5.0) g/dL Globulin (2.6-4.0) g/dL Albumin/Globulin Ratio (0.9-1.6) Free T4 (0.76-1.46) ng/dL TSH 3rd Generation (0.36-3.74) uIU/mL Urine Color Urine Appearance Urine pH (5.0-8.0) Ur Specific [place] (1.001-1.035) Urine Protein (NEGATIVE) mg/dL Urine Glucose (UA) (NEGATIVE) mg/dL Urine Ketones (NEGATIVE) mg/dL Urine Occult Blood (NEGATIVE) Urine Nitrite (NEGATIVE) Urine Bilirubin (NEGATIVE) Urine Urobilinogen (<2.0) EU/dL Ur Leukocyte Esterase (NEGATIVE) SARS-CoV-2 RNA (GERI) (NEGATIVE) Result Diagrams: 07/05/20 06:00 07/05/20 05:55 Sepsis Event Note - Evaluation Sepsis Screening Result: No Definite Risk - Focused Exam Vital Signs: Vital Signs Temp Pulse Resp BP Pulse Ox 07/05/20 08:26 36.7 C 104 H 16 122/63 93 L 07/05/20 04:00 36.6 C 89 18 110/60 96 07/05/20 01:30 36.6 C 98 17 143/73 H 96 07/05/20 00:05 100 18 97 07/04/20 23:26 104 H 18 130/73 95 07/04/20 22:05 107 H 18 137/74 95 Problem List Initiated/Reviewed/Updated: Yes Orders Last 24hrs: Active Orders 24 hr Category Date Time Status Patient Status [ADT] Routine ADT 07/04/20 23:53 Active Cardiac Monitoring [RC] . DIRECTED Care 07/04/20 20:36 Active EKG Documentation Completion [RC] STAT Care 07/04/20 20:35 Active Orthostatic Vital Signs [RC] ASDIRECTED Care 07/04/20 20:35 Active Telemetry Monitoring [Cardiac Monitoring] [RC] Q8H Care 07/05/20 00:53 Active Vital Signs [RC] Q4H Care 07/05/20 03:52 Active Regular Diet [DIET] Diet 07/05/20 Breakfast Active Sodium Chloride 0.9% [Saline Flush] Med 07/04/20 20:36 Active 10 ml FLUSH ASDIRECTED PRN Sodium Chloride 0.9% [Saline Flush] Med 07/04/20 20:36 Active 2.5 ml FLUSH ASDIRECTED PRN Saline Lock Insert [OM.PC] Stat Oth 07/04/20 20:36 Ordered Medication Orders Sodium Chloride (Saline Flush) 10 ml FLUSH ASDIRECTED PRN PRN Reason: Keep Vein Open Last Admin: 07/04/20 21:28 Dose: 10 ml Documented by: [id number] Sodium Chloride (Saline Flush) 2.5 ml FLUSH ASDIRECTED PRN PRN Reason: Keep Vein Open Last Admin: 07/04/20 21:28 Dose: 2.5 ml Documented by: [id number] Assessment/Plan Comment:: PAtient was admitted for nausea, vomiting and dizziness. I suspect her symptoms may be side effects from her tramadol. She had no events overnight on telemetry and is walking hallways with walker without difficulty. Patient is requesting discharge home. I spoke to son who is agreeable to discharge and reports there will always be family with her at home. Patient was discharged home to have follow up with her PCP.
[2020-07-05 10:14] LABS: CARBON DIOXIDE,CO2 32.5 mmol/L (21.0-32.0); POTASSIUM,K 4.4 mmol/L (3.5-5.1)
== END 2020-07-05 14:00 | disposition home or self-care (01) ==
LOC: MW.ED 20:09 → MW.MS 23:53
PROVIDERS: ADMIT Internal Medicine; ATTEND Internal Medicine
DX: R55 Syncope and collapse (principal); I10 Essential (primary) hypertension; E03.9 Hypothyroidism, unspecified; Z96.652 Presence of left artificial knee joint; Z88.8 Allergy status to other drugs, medicaments and biological substances; Z79.899 Other long term (current) drug therapy; Z79.82 Long term (current) use of aspirin; Z20.822 Contact with and (suspected) exposure to COVID-19; Z98.890 Other specified postprocedural states; Z87.890 Personal history of sex reassignment
CPT/HCPCS: 36415; 70450; 71045; 71275; 80048; 80053; 81003; 83605; 83880; 84439; 84443; 84484; 85025; 85379; 85610; 93005; 93971; 96374; 99285; G0378; J2060; J7030; U0002; 93010; 99284

== ENCOUNTER 2023-11-15 21:18 | Emergency (ER) | payer MEDICARE, BC ==
[2023-11-15 22:10] LABS: BASOPHILS ABSOLUTE AUTO 0.05 K/uL (0.00-0.20); BASOPHILS PERCENT AUTO 0.5 % (0.0-1.0); EOSINOPHILS ABSOLUTE AUTO 0.16 K/uL (0.00-0.45); EOSINOPHILS PERCENT AUTO 1.7 % (0.0-6.0); HEMATOCRIT 42.1 % (37.0-47.0); HEMOGLOBIN 13.9 g/dL (12.0-16.0); IMMATURE GRAN ABSOLUTE AUTO 0.02 K/uL (0.00-0.05); IMMATURE GRAN PERCENT AUTO 0.2 % (0.0-0.4); LYMPHOCYTES ABSOLUTE AUTO 3.07 K/uL (1.00-4.80); LYMPHOCYTES PERCENT AUTO 33.2 % (24.0-44.0); MEAN CORPUSCULAR HEMOGLOBIN 28.4 pg (28.0-32.0); MEAN CORPUSCULAR VOLUME 86.1 fL (83.0-99.0); MEAN PLATELET VOLUME 8.7 fL (9.4-12.3); MONOCYTES PERCENT AUTO 8.6 % (0.0-8.0); NEUTROPHILS ABSOLUTE AUTO 5.16 K/uL (1.80-7.70); NEUTROPHILS PERCENT AUTO 55.8 % (41.0-71.0); PLATELET COUNT,PLT 294 K/uL (150-400); RED BLOOD CELL COUNT 4.89 M/uL (4.10-5.30); WHITE BLOOD CELL COUNT,WBC 9.26 K/uL (3.9-11.3)
[2023-11-15] MEDS: Aspirin 81 MG Tab.Chew PO ONE (22:24)
[2023-11-15] MEDS: Nitroglycerin 0.4 MG Tab.SL SL ONE (22:25)
[2023-11-15 22:28] LABS: INR 0.97 (0.86-1.11); PTT,PARTIAL THROMBOPLSTIN TIME 29.9 SEC (23.9-30.7)
[2023-11-15 22:40] LABS: A/G RATIO 0.7 (0.9-1.6); ALBUMIN 3.4 g/dL (3.4-5.0); BILIRUBIN TOTAL 0.6 mg/dL (0.2-1.0); CALCIUM 9.3 mg/dL (8.5-10.1); CARBON DIOXIDE,CO2 30.1 mmol/L (21.0-32.0); CREATININE 1.1 mg/dL (0.6-1.0); EST CRCL DRUG DOSING (CG) 28.5 mL/min; MAGNESIUM 1.7 mg/dL (1.8-2.4); POTASSIUM,K 3.8 mmol/L (3.5-5.1); PROTEIN TOTAL,TP 8.1 g/dL (6.4-8.2)
[2023-11-15] MEDS: Morphine 2 MG/ML SYRINGE IVPUSH ONE (22:42)
[2023-11-15] MEDS: Iopamidol 755 MG/ML 500 ML Multipack Bottle IVPUSH STA (23:53)
[2023-11-15] MEDS: Midazolam 1 MG/ML 2 ML SDV IVPUSH ONE (23:53)
[2023-11-16] MEDS: Midazolam 1 MG/ML 2 ML SDV IVPUSH ONE (00:02)
== END 2023-11-16 01:50 | disposition home or self-care (01) ==
LOC: MW.ED 21:18
DX: R07.89 Other chest pain (principal); I10 Essential (primary) hypertension; E03.9 Hypothyroidism, unspecified; R06.02 Shortness of breath; Z88.8 Allergy status to other drugs, medicaments and biological substances; Z79.82 Long term (current) use of aspirin; Z79.899 Other long term (current) drug therapy; Z79.890 Hormone replacement therapy; Z90.710 Acquired absence of both cervix and uterus
CPT/HCPCS: 36415; 71045; 71275; 80053; 83735; 83880; 84484; 85025; 85379; 85610; 85730; 93005; 96374; 96375; 99285; A9270; J2250; J2270; Q9967; 93010; 99284

== ENCOUNTER 2024-01-20 12:17 | Emergency (ER) | payer MEDICARE, BC | END 2024-01-20 15:45 | disposition left against medical advice (07) | LOC: MW.ED 12:17 | DX: Z53.21 Procedure and treatment not carried out due to patient leaving prior to being seen by health care provider (principal) ==

== ENCOUNTER 2024-01-29 13:54 | Inpatient (IN) | payer MEDICARE, BC ==
[2024-01-29] MEDS ORDERED: Sodium Chloride 0.9% 2.5 ML Syringe FLUSH PRN (14:02)
[2024-01-29] MEDS ORDERED: Sodium Chloride 0.9% 10 ML Syringe FLUSH PRN (14:02)
[2024-01-29 14:12] LABS: BASOPHILS ABSOLUTE AUTO 0.07 K/uL (0.00-0.20); EOSINOPHILS ABSOLUTE AUTO 0.12 K/uL (0.00-0.45); EOSINOPHILS PERCENT AUTO 1.7 % (0.0-6.0); HEMATOCRIT 43.5 % (37.0-47.0); HEMOGLOBIN 14.2 g/dL (12.0-16.0); IMMATURE GRAN ABSOLUTE AUTO 0.01 K/uL (0.00-0.05); IMMATURE GRAN PERCENT AUTO 0.1 % (0.0-0.4); LYMPHOCYTES ABSOLUTE AUTO 3.65 K/uL (1.00-4.80); LYMPHOCYTES PERCENT AUTO 50.6 % (24.0-44.0); MEAN CORPUSCULAR HEMOGLOBIN 28.2 pg (28.0-32.0); MEAN CORPUSCULAR HGB CONC 32.6 g/dL (32.0-36.0); MEAN CORPUSCULAR VOLUME 86.3 fL (83.0-99.0); MONOCYTES ABSOLUTE AUTO 0.63 K/uL (0.00-0.80); MONOCYTES PERCENT AUTO 8.7 % (0.0-8.0); NEUTROPHILS ABSOLUTE AUTO 2.73 K/uL (1.80-7.70); NEUTROPHILS PERCENT AUTO 37.9 % (41.0-71.0); PLATELET COUNT,PLT 274 K/uL (150-400); RED BLOOD CELL COUNT 5.04 M/uL (4.10-5.30); WHITE BLOOD CELL COUNT,WBC 7.21 K/uL (3.9-11.3)
[2024-01-29 14:30] LABS: INR 1.03 (0.86-1.11); PTT,PARTIAL THROMBOPLSTIN TIME 28.1 SEC (23.9-30.7)
[2024-01-29 14:41] LABS: A/G RATIO 0.8 (0.9-1.6); ALANINE AMINOTRANSFERASE,ALT 20 IU/L (14-63); ALBUMIN 3.6 g/dL (3.4-5.0); ALKALINE PHOSPHATASE 134 U/L (46-116); ASPARTATE AMNIOTRANSFERASE,AST 43 IU/L (15-37); BLOOD UREA NITROGEN,BUN 13 mg/dL (7.0-18.0); CALCIUM 9.6 mg/dL (8.5-10.1); CARBON DIOXIDE,CO2 27.6 mmol/L (21.0-32.0); CHLORIDE,CL 102 mmol/L (98-107); GLUCOSE RANDOM 98 mg/dL (74-106); POTASSIUM,K 4.6 mmol/L (3.5-5.1); PROTEIN TOTAL,TP 8.1 g/dL (6.4-8.2); SODIUM,NA 138 mmol/L (136-145)
[2024-01-29 14:55] LABS: ESTIMATED GFR 55 mL/min (>60)
[2024-01-29 15:26] LABS: CORONAVIRUS COVID-19 NAA NEGATIVE (NEGATIVE); INFLUENZA A NAA NEGATIVE (NEGATIVE); INFLUENZA B NAA NEGATIVE (NEGATIVE); RESPIRATORY SYNCYTIAL VIR NAA NEGATIVE (NEGATIVE)
[2024-01-29 16:50] LABS: APPEARANCE,URINE CLEAR; BILIRUBIN,URINE NEGATIVE (NEGATIVE); COLOR,URINE YELLOW; GLUCOSE,URINE NEGATIVE (NEGATIVE); KETONES,URINE NEGATIVE (NEGATIVE); LEUKOCYTE ESTERASE,URINE TRACE (NEGATIVE); NITRITE,URINE NEGATIVE (NEGATIVE); OCCULT BLOOD,URINE NEGATIVE (NEGATIVE); PH,URINE 6.5 (5.0-8.0); PROTEIN,URINE NEGATIVE (NEGATIVE); UROBILINOGEN,URINE 0.2 EU/dL (<2.0)
[2024-01-29 16:58] LABS: BACTERIA,URINE RARE (NEGATIVE); EPITHELIAL CELLS,URINE OCCASIONAL (NONE-FEW); RBC,URINE 0-1 (0-2/HPF); WBC,URINE 0-5 (0-5/HPF)
[2024-01-29] MEDS ORDERED: Polyethylene Glycol 3350 Powder 17 GM Packet PO PRN (19:59)
[2024-01-29] MEDS ORDERED: Ondansetron 4 MG/2 ML SDV IVPUSH PRN (19:59)
[2024-01-29] MEDS ORDERED: Acetaminophen 325 MG Tab PO PRN (19:59)
[2024-01-29 20:57] LABS: HEMOGLOBIN A1C 5.7 %
[2024-01-29 21:16] LABS: TSH ULTRASENSITIVE 2.04 uIU/mL (0.36-3.74)
[2024-01-30] MEDS: LORazepam 2 MG/ML SDV IVPUSH ONE ×2 (00:07→15:05)
[2024-01-30 05:37] LABS: BASOPHILS ABSOLUTE AUTO 0.07 K/uL (0.00-0.20); BASOPHILS PERCENT AUTO 0.8 % (0.0-1.0); EOSINOPHILS ABSOLUTE AUTO 0.15 K/uL (0.00-0.45); EOSINOPHILS PERCENT AUTO 1.7 % (0.0-6.0); HEMATOCRIT 42.9 % (37.0-47.0); IMMATURE GRAN ABSOLUTE AUTO 0.02 K/uL (0.00-0.05); IMMATURE GRAN PERCENT AUTO 0.2 % (0.0-0.4); LYMPHOCYTES ABSOLUTE AUTO 2.91 K/uL (1.00-4.80); LYMPHOCYTES PERCENT AUTO 33.5 % (24.0-44.0); MEAN CORPUSCULAR HEMOGLOBIN 28.1 pg (28.0-32.0); MEAN CORPUSCULAR HGB CONC 32.6 g/dL (32.0-36.0); MEAN PLATELET VOLUME 9.2 fL (9.4-12.3); MONOCYTES ABSOLUTE AUTO 0.82 K/uL (0.00-0.80); MONOCYTES PERCENT AUTO 9.4 % (0.0-8.0); NEUTROPHILS ABSOLUTE AUTO 4.72 K/uL (1.80-7.70); NEUTROPHILS PERCENT AUTO 54.4 % (41.0-71.0); PLATELET COUNT,PLT 297 K/uL (150-400); RED BLOOD CELL COUNT 4.99 M/uL (4.10-5.30); WHITE BLOOD CELL COUNT,WBC 8.69 K/uL (3.9-11.3)
[2024-01-30 06:03] LABS: CALCIUM 9.5 mg/dL (8.5-10.1); CARBON DIOXIDE,CO2 26.8 mmol/L (21.0-32.0); CREATININE 1.2 mg/dL (0.6-1.0); EST CRCL DRUG DOSING (CG) 26.12 mL/min; POTASSIUM,K 3.7 mmol/L (3.5-5.1)
[2024-01-30] MEDS ORDERED: Levothyroxine 75 MCG Tab PO SCH (08:00)
[2024-01-30] MEDS: Levothyroxine 50 MCG Tab PO SCH (10:17)
[2024-01-30] MEDS: Metoprolol Succinate 50 MG Tab.ER PO SCH (10:17)
[2024-01-30] MEDS: Melatonin 3 MG Tab PO PRN (21:50)
[2024-01-31] MEDS ORDERED: Levothyroxine 50 MCG Tab PO SCH (07:30)
[2024-01-31] MEDS: Sodium Chloride 0.9% 1,000 ML IV ONE (09:39)
[2024-01-31 10:14] LABS: BASOPHILS ABSOLUTE AUTO 0.06 K/uL (0.00-0.20); EOSINOPHILS ABSOLUTE AUTO 0.09 K/uL (0.00-0.45); EOSINOPHILS PERCENT AUTO 1.5 % (0.0-6.0); HEMOGLOBIN 12.9 g/dL (12.0-16.0); IMMATURE GRAN ABSOLUTE AUTO 0.01 K/uL (0.00-0.05); IMMATURE GRAN PERCENT AUTO 0.2 % (0.0-0.4); LYMPHOCYTES ABSOLUTE AUTO 1.99 K/uL (1.00-4.80); MEAN CORPUSCULAR HEMOGLOBIN 28.4 pg (28.0-32.0); MEAN CORPUSCULAR HGB CONC 32.3 g/dL (32.0-36.0); MEAN CORPUSCULAR VOLUME 87.9 fL (83.0-99.0); MEAN PLATELET VOLUME 9.5 fL (9.4-12.3); MONOCYTES ABSOLUTE AUTO 0.52 K/uL (0.00-0.80); MONOCYTES PERCENT AUTO 8.9 % (0.0-8.0); NEUTROPHILS ABSOLUTE AUTO 3.19 K/uL (1.80-7.70); NEUTROPHILS PERCENT AUTO 54.4 % (41.0-71.0); PLATELET COUNT,PLT 209 K/uL (150-400); RED BLOOD CELL COUNT 4.55 M/uL (4.10-5.30); WHITE BLOOD CELL COUNT,WBC 5.86 K/uL (3.9-11.3)
[2024-01-31 10:37] LABS: CALCIUM 9.2 mg/dL (8.5-10.1); EST CRCL DRUG DOSING (CG) 31.35 mL/min; POTASSIUM,K 4.2 mmol/L (3.5-5.1)
[2024-01-31] MEDS: Pravastatin 40 MG Tab PO SCH (14:02)
[2024-01-31] MEDS: Aspirin 81 MG Tab.EC PO SCH (14:02)
== END 2024-02-01 11:25 | disposition home health service (06) | DRG 948 ==
LOC: MW.ED 13:54 → MW.MS 18:24
PROVIDERS: ADMIT Family Medicine; ATTEND Family Medicine
DX: I63.9 Cerebral infarction, unspecified (principal); R53.1 Weakness; F03.92 Unspecified dementia, unspecified severity, with psychotic disturbance; F03.911 Unspecified dementia, unspecified severity, with agitation; F03.94 Unspecified dementia, unspecified severity, with anxiety; Z75.8 Other problems related to medical facilities and other health care; Z66 Do not resuscitate; Z79.890 Hormone replacement therapy; I10 Essential (primary) hypertension; E03.9 Hypothyroidism, unspecified; Z96.659 Presence of unspecified artificial knee joint; M79.10 Myalgia, unspecified site; W19.XXXA Unspecified fall, initial encounter; Z88.8 Allergy status to other drugs, medicaments and biological substances; Z79.82 Long term (current) use of aspirin; Z79.899 Other long term (current) drug therapy; Z90.710 Acquired absence of both cervix and uterus; Z98.890 Other specified postprocedural states
CPT/HCPCS: 0241U; 36415; 70450; 71045; 80048; 80053; 80061; 81001; 82607; 82947; 83036; 83735; 84443; 84484; 85025; 85610; 85730; 87086; 97162; 97530; 99285; 99222; 99232; 99239; 99284; A9270-GY; J2060; J7030

== ENCOUNTER 2024-02-03 15:44 | Emergency (ER) | payer MEDICARE, BC ==
[2024-02-03 16:59] LABS: BASOPHILS ABSOLUTE AUTO 0.05 K/uL (0.00-0.20); BASOPHILS PERCENT AUTO 0.7 % (0.0-1.0); EOSINOPHILS ABSOLUTE AUTO 0.04 K/uL (0.00-0.45); EOSINOPHILS PERCENT AUTO 0.5 % (0.0-6.0); HEMATOCRIT 42.5 % (37.0-47.0); HEMOGLOBIN 13.9 g/dL (12.0-16.0); IMMATURE GRAN ABSOLUTE AUTO 0.02 K/uL (0.00-0.05); IMMATURE GRAN PERCENT AUTO 0.3 % (0.0-0.4); LYMPHOCYTES ABSOLUTE AUTO 2.05 K/uL (1.00-4.80); LYMPHOCYTES PERCENT AUTO 27.2 % (24.0-44.0); MEAN CORPUSCULAR HEMOGLOBIN 28.1 pg (28.0-32.0); MEAN CORPUSCULAR HGB CONC 32.7 g/dL (32.0-36.0); MEAN PLATELET VOLUME 9.5 fL (9.4-12.3); MONOCYTES ABSOLUTE AUTO 0.76 K/uL (0.00-0.80); MONOCYTES PERCENT AUTO 10.1 % (0.0-8.0); NEUTROPHILS ABSOLUTE AUTO 4.62 K/uL (1.80-7.70); NEUTROPHILS PERCENT AUTO 61.2 % (41.0-71.0); PLATELET COUNT,PLT 259 K/uL (150-400); RED BLOOD CELL COUNT 4.94 M/uL (4.10-5.30); WHITE BLOOD CELL COUNT,WBC 7.54 K/uL (3.9-11.3)
[2024-02-03 17:20] LABS: A/G RATIO 0.9 (0.9-1.6); ALANINE AMINOTRANSFERASE,ALT 25 IU/L (14-63); ALBUMIN 3.7 g/dL (3.4-5.0); ALKALINE PHOSPHATASE 127 U/L (46-116); ASPARTATE AMNIOTRANSFERASE,AST 33 IU/L (15-37); BILIRUBIN TOTAL 0.7 mg/dL (0.2-1.0); BLOOD UREA NITROGEN,BUN 18 mg/dL (7.0-18.0); CALCIUM 9.4 mg/dL (8.5-10.1); CHLORIDE,CL 102 mmol/L (98-107); CREATININE 1.2 mg/dL (0.6-1.0); GLUCOSE RANDOM 110 mg/dL (74-106); POTASSIUM,K 3.5 mmol/L (3.5-5.1); PROTEIN TOTAL,TP 7.8 g/dL (6.4-8.2); SODIUM,NA 139 mmol/L (136-145)
[2024-02-03 17:21] LABS: APPEARANCE,URINE CLEAR; BILIRUBIN,URINE NEGATIVE (NEGATIVE); COLOR,URINE YELLOW; GLUCOSE,URINE NEGATIVE (NEGATIVE); KETONES,URINE NEGATIVE (NEGATIVE); LEUKOCYTE ESTERASE,URINE TRACE (NEGATIVE); NITRITE,URINE POSITIVE (NEGATIVE); OCCULT BLOOD,URINE TRACE-INTACT (NEGATIVE); PROTEIN,URINE NEGATIVE (NEGATIVE); UROBILINOGEN,URINE 0.2 EU/dL (<2.0)
[2024-02-03 17:23] LABS: ESTIMATED GFR 44 mL/min (>60)
[2024-02-03 17:29] LABS: BACTERIA,URINE FEW (NEGATIVE); EPITHELIAL CELLS,URINE FEW (NONE-FEW)
== END 2024-02-03 18:29 | disposition home or self-care (01) ==
LOC: MW.ED 15:44
DX: Z02.89 Encounter for other administrative examinations (principal); R41.0 Disorientation, unspecified; I10 Essential (primary) hypertension; E03.9 Hypothyroidism, unspecified; Z90.710 Acquired absence of both cervix and uterus; Z79.890 Hormone replacement therapy; Z79.899 Other long term (current) drug therapy; Z88.8 Allergy status to other drugs, medicaments and biological substances; Z75.8 Other problems related to medical facilities and other health care
CPT/HCPCS: 36415; 80053; 81001; 85025; 99285

== ENCOUNTER 2024-08-05 15:18 | Emergency (ER) | payer MEDICARE, BC ==
[2024-08-05 16:16] LABS: APPEARANCE,URINE SLT CLOUDY; BILIRUBIN,URINE NEGATIVE (NEGATIVE); COLOR,URINE YELLOW; GLUCOSE,URINE NEGATIVE (NEGATIVE); KETONES,URINE NEGATIVE (NEGATIVE); LEUKOCYTE ESTERASE,URINE MODERATE (NEGATIVE); NITRITE,URINE NEGATIVE (NEGATIVE); OCCULT BLOOD,URINE TRACE-INTACT (NEGATIVE); PROTEIN,URINE NEGATIVE (NEGATIVE); UROBILINOGEN,URINE 0.2 EU/dL (<2.0)
[2024-08-05 16:26] LABS: BACTERIA,URINE FEW (NEGATIVE); EPITHELIAL CELLS,URINE MODERATE (NONE-FEW); RBC,URINE 0-1 (0-2/HPF)
== END 2024-08-05 19:39 | disposition home or self-care (01) ==
LOC: MW.ED 15:18
DX: F03.90 Unspecified dementia, unspecified severity, without behavioral disturbance, psychotic disturbance, mood disturbance, and anxiety (principal); I10 Essential (primary) hypertension; E03.9 Hypothyroidism, unspecified; Z88.8 Allergy status to other drugs, medicaments and biological substances; Z79.890 Hormone replacement therapy; Z79.899 Other long term (current) drug therapy; Z90.710 Acquired absence of both cervix and uterus
CPT/HCPCS: 73502-26-RT; 73502-RT; 81001; 99284

== ENCOUNTER 2024-08-10 09:52 | Emergency (ER) | payer MEDICARE, BC | END 2024-08-10 10:04 | disposition left against medical advice (07) | LOC: MW.ED 09:52 | DX: Z53.21 Procedure and treatment not carried out due to patient leaving prior to being seen by health care provider (principal) ==